=== PATIENT | female | born 2000 | race Caucasian/White ===

== ENCOUNTER 2020-08-06 06:19 | Emergency (ER) | payer OTHER ==
[~2020-08-06 06:19] MED LIST: CYMBALTA30 MG PO; FLEXERIL 10 MG10 MG PO; FLONASE 0.05% N16 GM; IBUPROFEN600 MG PO; KEFLEX CAP 500500 MG PO; LOPRESSOR 25 MG25 MG PO; NAPROSYN500 MG PO; NIKKI 3 MG-0.01 EACH PO; NORCO 5-325 TA1 EACH PO; PROTONIX40 MG PO; SINGULAIR10 MG PO; ZOFRAN4 MG PO
[2020-08-06 06:49] LABS: HEMOGLOBIN 13.4 gm/dl (12.3-15.3); RED BLOOD COUNT 4.65 M/UL (4.00-5.10); WHITE BLOOD COUNT 6.5 K/UL (4.5-11.0)
[2020-08-06 07:25] LABS: BUN/CREATININE RATIO 13 (0-10)
[2020-08-06] MEDS ORDERED: ZITHROMAX250 MG PO (08:21)
== END 2020-08-06 09:00 | disposition home or self-care (01) ==
LOC: ER1 06:19
PROVIDERS: Preventive Medicine Occupational Medicine
DX: U07.1 COVID-19 (principal); J12.82 Pneumonia due to coronavirus disease 2019
CPT/HCPCS: 71045; 80048; 85025; 99283; U0002